=== PATIENT | female | born 1945 ===

== ENCOUNTER 2023-08-27 18:58 | Emergency (ER) | payer OTHER ==
[2023-08-27] MEDS ORDERED: Morphine 4 MG/ML VIAL ONE (19:21)
[2023-08-27] MEDS ORDERED: Ondansetron PF 4 MG/2 ML Vial ONE (19:21)
[2023-08-27] MEDS ORDERED: fentaNYL 50 mcg/mL 1 mL Vial ONE (19:31)
== END 2023-08-27 22:25 | disposition home or self-care (01) ==
LOC: ERS 18:58
DX: S76.012A Strain of muscle, fascia and tendon of left hip, initial encounter (principal); W22.8XXA Striking against or struck by other objects, initial encounter; Y93.01 Activity, walking, marching and hiking
CPT/HCPCS: 73502; 73552; 96374; 96375; 99283; J3010; J2270; J2405

== ENCOUNTER → 2023-11-12 | Day surgery (SDC) | payer OTHER | LOC: ENDO/OP 12:13 | PROVIDERS: ATTEND Internal Medicine Gastroenterology | PROC: 4A0B88Z Measurement of Gastrointestinal Motility, Via Natural or Artificial Opening Endoscopic (ICD-10-PCS; principal; 2023-11-12) | DX: R13.19 Other dysphagia (principal); E11.9 Type 2 diabetes mellitus without complications; I10 Essential (primary) hypertension; J45.909 Unspecified asthma, uncomplicated; M19.90 Unspecified osteoarthritis, unspecified site; K21.9 Gastro-esophageal reflux disease without esophagitis; F32.A Depression, unspecified; F41.9 Anxiety disorder, unspecified; Z88.5 Allergy status to narcotic agent; Z91.040 Latex allergy status; Z86.73 Personal history of transient ischemic attack (TIA), and cerebral infarction without residual deficits; Z79.899 Other long term (current) drug therapy; Z87.891 Personal history of nicotine dependence | CPT/HCPCS: 91010 ==